=== PATIENT | male | born 1970 | race Caucasian/White ===

== ENCOUNTER 2017-03-30 02:53 | Inpatient (IN) | payer OTHER ==
[2017-03-30 04:38] LABS: Anion Gap 22 mmol/L; BUN/Creatinine Ratio 10; Blood Urea Nitrogen 10 mg/dL (9-20); Calcium 9.7 mg/dL (8.4-10.2); Carbon Dioxide 24 mmol/L (22-30); Chloride 94.2 mmol/L (98-107); Glucose 112 mg/dL (75-100); Potassium 3.9 mmol/L (3.6-5.0); Sodium 136 mmol/L (137-145)
[2017-03-30 04:44] LABS: Basophils % (Auto) 0.4 % (0.0-1.8); Eosinophils % (Auto) 0.3 % (0.0-4.3); Hematocrit 47.9 % (35.5-45.6); Hemoglobin 15.6 gm/dl (11.8-15.2); Mean Corpuscular HGB Conc 33 % (32-34); Mean Corpuscular Hemoglobin 29 pg (28-32); Mean Corpuscular Volume 89 fl (84-94); Platelet Count 256 K/mm3 (140-440); Red Blood Count 5.41 M/mm3 (3.65-5.03); Red Cell Distribution Width 14.6 % (13.2-15.2); White Blood Count 10.7 K/mm3 (4.5-11.0)
[2017-03-30] MEDS ORDERED: ASPIRIN PO ONE (08:44)
[2017-03-30] MEDS ORDERED: NITRO-BID 2% TP ONE (08:44)
--- NOTE | 2017-03-30 08:50 | Emergency Department Report ---
HPI - General Chief Complaint: Arrhythmia/Palpitations Time Seen by Provider: 03/30/17 08:36 - HPI HPI: Room 18 The patient is a 46-year-old male presenting with a chief complaint of chest pain. Patient admits to using cocaine yesterday and states minutes afterwards he developed chest pain and tachycardia. Patient describes chest pain as sharp and burning in nature and states it has been constant. Patient currently gets the chest pain score of 9/10. Patient does admit to a cough for the past 2 weeks. Vision his shortness of breath, nausea/vomiting and diaphoresis with his chest pain Location: Chest Duration: Constant since yesterday Quality: Sharp/burning Severity: 9/10 Modifying factors: [see above] Context: [see above] Mode of transportation: [not driving] ED Past Medical Hx - Past Medical History Previous Medical History?: No - Surgical History Past Surgical History?: No - Family History Family history: no significant - Social History Smoking Status: Current Every Day Smoker (1 pack per day) Substance Use Type: Alcohol (1 pint of liquor daily. Last consumed yesterday), Cocaine, Marijuana, Prescribed ED Review of Systems ROS: Stated complaint: TACHYCARDIC Other details as noted in HPI Comment: All other systems reviewed and negative Constitutional: diaphoresis Eyes: denies: eye pain, eye discharge, vision change ENT: denies: ear pain, throat pain Respiratory: shortness of breath Cardiovascular: chest pain, palpitations Endocrine: no symptoms reported Gastrointestinal: nausea, vomiting Genitourinary: denies: urgency, dysuria Musculoskeletal: denies: back pain, joint swelling, arthralgia Skin: denies: rash, lesions Neurological: denies: headache, weakness, paresthesias Psychiatric: denies: anxiety, depression Hematological/Lymphatic: denies: easy bleeding, easy bruising Physical Exam - Physical Exam Vital Signs: Vital Signs 03/30/17 03/30/17 03:06 06:55 Temperature 99 F 98.0 F Pulse Rate 106 H 88 Respiratory 18 Rate Blood Pressure 134/84 126/70 O2 Sat by Pulse 20 L 97 Oximetry Physical Exam: GENERAL: The patient is well-developed well-nourished male sleeping on stretcher not appearing to be in acute distress. Awakens to tactile stimuli HEENT: Normocephalic. Atraumatic. NECK: Supple. Trachea midline CHEST/LUNGS: Clear to auscultation. There is no respiratory distress noted. HEART/CARDIOVASCULAR: Regular. There is no tachycardia. There is no gallop rub or murmur. ABDOMEN: Abdomen is soft, nontender. Patient has normal bowel sounds. There is no abdominal distention. SKIN: There is no rash. There is no edema. There is no diaphoresis. NEURO: The patient is sleeping but awakens to tactile stimuli and becomes oriented. The patient is cooperative. The patient has normal speech MUSCULOSKELETAL: There is no evidence of acute injury. ED Course Vital Signs 03/30/17 03/30/17 03:06 06:55 Temperature 99 F 98.0 F Pulse Rate 106 H 88 Respiratory 18 Rate Blood Pressure 134/84 126/70 O2 Sat by Pulse 20 L 97 Oximetry ED Medical Decision Making - Lab Data Result diagrams: 03/30/17 04:05 03/30/17 04:05 Laboratory Tests 03/30/17 03/30/17 03/30/17 04:05 04:05 07:30 WBC 10.7 RBC 5.41 H Hgb 15.6 H Hct 47.9 H MCV 89 MCH 29 MCHC 33 RDW 14.6 Plt Count 256 Lymph % (Auto) 31.0 [place] % (Auto) 11.6 H Eos % (Auto) 0.3 Baso % (Auto) 0.4 Lymph # 3.3 [place] # 1.2 H Eos # 0.0 Baso # 0.0 Seg Neutrophils % 56.7 Seg Neutrophils # 6.0 Sodium 136 L Potassium 3.9 Chloride 94.2 L Carbon Dioxide 24 Anion Gap 22 BUN 10 Creatinine 1.0 Estimated GFR > 60 BUN/Creatinine Ratio 10 Glucose 112 H Calcium 9.7 Troponin T < 0.010 < 0.010 - EKG Data -: EKG Interpreted by Me EKG shows normal: sinus rhythm Rate: normal - EKG Data When compared to previous EKG there are: previous EKG unavailable Interpretation: nonspecific ST-T wave feliz (flattened T-wave in lead aVL) - Radiology Data Radiology results: image reviewed (chest x-ray) interpreted by me: Chest x-ray-no focal infiltrates, no pneumothorax - Differential Diagnosis ACS, coronary spasm, cocaine induced chest pain Critical care attestation.: If time is entered above; I have spent that time in minutes in the direct care of this critically ill patient, excluding procedure time. ED Disposition Clinical Impression: Chest pain, Cocaine abuse Disposition: -09 OP ADMIT IP TO THIS HOSP Is pt being admited?: Yes Does the pt Need Aspirin: Yes Condition: Fair Instructions: Chest Pain (ED) Referrals: PRIMARY CARE, [Primary Care Provider] - 3-5 Days Time of Disposition: 09:06 (hospitalist paged)
--- NOTE | 2017-03-30 09:04 | XRay Report ---
AP CHEST: HISTORY: chest pain AP view of the chest demonstrates a normal mediastinal and cardiac contour with clear lungs and normal bony and soft tissue structures. IMPRESSION: Unremarkable AP chest.
[2017-03-30] MEDS ORDERED: DULCOLAX PR PRN (10:35)
[2017-03-30] MEDS ORDERED: MORPHINE IV PRN (10:35)
[2017-03-30] MEDS ORDERED: TYLENOL PO PRN (10:35)
--- NOTE | 2017-03-30 10:44 | History and Physical Report ---
<ANNITA SHARP - Last Filed: 03/30/17 16:02> History of Present Illness Date of examination: 03/30/17 Date of admission: 03/30/2017 Chief complaint: Chest pain History of present illness: Patient is a 46 years old with no past medical history, who presented to the Emergency Department complaining of Midsternal chest pain. He states that the pain began yesterday around 10:00PM, after her ingested cocaine since then he is having constant midsternal chest pain. Patient described the pain as, sharp, pressure and squeezing in his chest; that radiates to the back. The sharp pain lasted around 1 minute. There is no aggravating or reliving factors. The painful episodes did not increase in intensity or severity during this time. Patient rated his pain level 8/10. He denies nausea , vomiting during these episodes of pain. He experienced shortness of breath, nausea, and diaphoresis during these episodes of pain. He denies vomiting. He has never had chest pain in the past. He continued to have several episodes of the pain throughout the morning, he decided to come to the emergency department. Past History Past Medical History: No medical history Past Surgical History: No surgical history Social history: smoking Family history: hypertension Medications and Allergies Allergies Allergy/AdvReac Type Severity Reaction Status Date / Time No Known Allergies Allergy Unverified 03/30/17 03:10 Home Medications Medication Instructions Recorded Confirmed Last Taken Type No Known Home Medications [No 03/30/17 03/30/17 Unknown History Reported Home Medications] Active Meds: Active Medications Acetaminophen (Tylenol) 650 mg PO Q4H PRN PRN Reason: Pain MILD(1-3)/Fever >100.5/HOOK Aspirin (Aspirin) 325 mg PO DAILY [facility] Bisacodyl (Dulcolax) 10 mg [place] QDAY PRN PRN Reason: Constipation unrelieved by MOM Enoxaparin Sodium (Lovenox) 40 mg SUB-Q QDAY [facility] Morphine Sulfate (Morphine) 2 mg IV Q4H PRN PRN Reason: Pain, Moderate (4-6) Nitroglycerin (Nitrostat) 0.4 mg SL .Q5MIN PRN PRN Reason: Chest Pain Review of Systems Constitutional: no weight loss, no weight gain, no fever, no chills Ears, nose, mouth and throat: no ear discharge, no tinnitis, no decreased hearing, no nose pain Cardiovascular: chest pain, shortness of breath, no rapid/irregular heart beat, no edema, no lightheadedness Respiratory: shortness of breath, no cough, no cough with sputum, no excessive sputum Gastrointestinal: nausea, vomiting, no diarrhea, no constipation, no change in bowel habits Genitourinary Male: no discharge, no urinary frequency, no urinary hesitancy, no incontinence Musculoskeletal: no arm numbness/tingling, no low back pain, no shooting leg pain, no leg numbness/tingling Integumentary: no sores, no wounds, no jaundice Neurological: no parathesias, no numbness, no tingling, no seizures Psychiatric: no change in sleep habits, no sleep disturbances, no insomnia, no hypersomnia Endocrine: no heat intolerance, no polyphagia, no excessive thirst Hematologic/Lymphatic: no easy bruising, no easy bleeding Allergic/Immunologic: no urticaria, no allergic rhinitis Exam - Constitutional Vitals: Temp Pulse Resp BP Pulse Ox 98.0 F 88 18 126/70 97 03/30/17 06:55 03/30/17 06:55 03/30/17 06:55 03/30/17 06:55 03/30/17 06:55 General appearance: Present: no acute distress - EENT Eyes: Present: PERRL ENT: hearing intact - Neck Neck: Present: supple - Respiratory Respiratory effort: normal Respiratory: bilateral: CTA - Cardiovascular Rhythm: regular Heart Sounds: Present: S1 & S2 - Extremities Extremities: no ischemia - Abdominal General gastrointestinal: Present: soft, non-tender Male genitourinary: Present: deferred - Rectal Rectal Exam: deferred - Integumentary Integumentary: Present: clear, warm, dry - Musculoskeletal Musculoskeletal: strength equal bilaterally - Psychiatric Psychiatric: appropriate mood/affect - Neurologic Neurologic: CNII-XII intact - Allied Health Allied health notes reviewed: nursing Results - Labs CBC & Chem 7: 03/30/17 04:05 03/30/17 04:05 Labs: Laboratory Last Values WBC 10.7 K/mm3 (4.5-11.0) 03/30/17 04:05 RBC 5.41 M/mm3 (3.65-5.03) H 03/30/17 04:05 Hgb 15.6 gm/dl (11.8-15.2) H 03/30/17 04:05 Hct 47.9 % (35.5-45.6) H 03/30/17 04:05 MCV 89 fl (84-94) 03/30/17 04:05 MCH 29 pg (28-32) 03/30/17 04:05 MCHC 33 % (32-34) 03/30/17 04:05 RDW 14.6 % (13.2-15.2) 03/30/17 04:05 Plt Count 256 K/mm3 (140-440) 03/30/17 04:05 Lymph % (Auto) 31.0 % (13.4-35.0) 03/30/17 04:05 [place] % (Auto) 11.6 % (0.0-7.3) H 03/30/17 04:05 Eos % (Auto) 0.3 % (0.0-4.3) 03/30/17 04:05 Baso % (Auto) 0.4 % (0.0-1.8) 03/30/17 04:05 Lymph # 3.3 K/mm3 (1.2-5.4) 03/30/17 04:05 [place] # 1.2 K/mm3 (0.0-0.8) H 03/30/17 04:05 Eos # 0.0 K/mm3 (0.0-0.4) 03/30/17 04:05 Baso # 0.0 K/mm3 (0.0-0.1) 03/30/17 04:05 Seg Neutrophils % 56.7 % (40.0-70.0) 03/30/17 04:05 Seg Neutrophils # 6.0 K/mm3 (1.8-7.7) 03/30/17 04:05 Sodium 136 mmol/L (137-145) L 03/30/17 04:05 Potassium 3.9 mmol/L (3.6-5.0) 03/30/17 04:05 Chloride 94.2 mmol/L (98-107) L 03/30/17 04:05 Carbon Dioxide 24 mmol/L (22-30) 03/30/17 04:05 Anion Gap 22 mmol/L 03/30/17 04:05 BUN 10 mg/dL (9-20) 03/30/17 04:05 Creatinine 1.0 mg/dL (0.8-1.5) 03/30/17 04:05 Estimated GFR > 60 ml/min 03/30/17 04:05 BUN/Creatinine Ratio 10 % 03/30/17 04:05 Glucose 112 mg/dL (75-100) H 03/30/17 04:05 Calcium 9.7 mg/dL (8.4-10.2) 03/30/17 04:05 Troponin T < 0.010 ng/mL (0.00-0.029) 03/30/17 09:08 Assessment and Plan Assessment and plan: Chest Pain We will admit to telemetry floor. EKG normal sinus, no ST elevation or T-wave inversion. Negative cardiac enzyme X3 Start on aspirin Nitroglycerin when necessary Morphine ordered for pain Stress test ordered. Cardiology evaluation Dehydration Started on IV hydration DVT prophylaxis Lovenox Advance Directives: Yes VTE prophylaxis?: Chemical Plan of care discussed with patient/family: Yes <VANNA CHAVARRIA R - Last Filed: 04/02/17 13:24> History of Present Illness Date of admission: 03/30/17 10:35 Exam - Constitutional Vitals: Temp Pulse Resp BP Pulse Ox 98.6 F 66 20 106/63 100 03/30/17 20:20 03/30/17 20:20 03/30/17 20:20 03/30/17 20:20 03/30/17 20:20 Results - Labs CBC & Chem 7: 03/30/17 04:05 03/30/17 04:05 Labs: Laboratory Last Values WBC 10.7 K/mm3 (4.5-11.0) 03/30/17 04:05 RBC 5.41 M/mm3 (3.65-5.03) H 03/30/17 04:05 Hgb 15.6 gm/dl (11.8-15.2) H 03/30/17 04:05 Hct 47.9 % (35.5-45.6) H 03/30/17 04:05 MCV 89 fl (84-94) 03/30/17 04:05 MCH 29 pg (28-32) 03/30/17 04:05 MCHC 33 % (32-34) 03/30/17 04:05 RDW 14.6 % (13.2-15.2) 03/30/17 04:05 Plt Count 256 K/mm3 (140-440) 03/30/17 04:05 Lymph % (Auto) 31.0 % (13.4-35.0) 03/30/17 04:05 [place] % (Auto) 11.6 % (0.0-7.3) H 03/30/17 04:05 Eos % (Auto) 0.3 % (0.0-4.3) 03/30/17 04:05 Baso % (Auto) 0.4 % (0.0-1.8) 03/30/17 04:05 Lymph # 3.3 K/mm3 (1.2-5.4) 03/30/17 04:05 [place] # 1.2 K/mm3 (0.0-0.8) H 03/30/17 04:05 Eos # 0.0 K/mm3 (0.0-0.4) 03/30/17 04:05 Baso # 0.0 K/mm3 (0.0-0.1) 03/30/17 04:05 Seg Neutrophils % 56.7 % (40.0-70.0) 03/30/17 04:05 Seg Neutrophils # 6.0 K/mm3 (1.8-7.7) 03/30/17 04:05 Sodium 136 mmol/L (137-145) L 03/30/17 04:05 Potassium 3.9 mmol/L (3.6-5.0) 03/30/17 04:05 Chloride 94.2 mmol/L (98-107) L 03/30/17 04:05 Carbon Dioxide 24 mmol/L (22-30) 03/30/17 04:05 Anion Gap 22 mmol/L 03/30/17 04:05 BUN 10 mg/dL (9-20) 03/30/17 04:05 Creatinine 1.0 mg/dL (0.8-1.5) 03/30/17 04:05 Estimated GFR > 60 ml/min 03/30/17 04:05 BUN/Creatinine Ratio 10 % 03/30/17 04:05 Glucose 112 mg/dL (75-100) H 03/30/17 04:05 Calcium 9.7 mg/dL (8.4-10.2) 03/30/17 04:05 Troponin T < 0.010 ng/mL (0.00-0.029) 03/30/17 09:08 Urine Opiates Screen Presumptive negative 03/30/17 11:45 Urine Methadone Screen Presumptive negative 03/30/17 11:45 Ur Barbiturates Screen Presumptive negative 03/30/17 11:45 Ur Phencyclidine Scrn Presumptive negative 03/30/17 11:45 Ur Amphetamines Screen Presumptive negative 03/30/17 11:45 U Benzodiazepines Scrn Presumptive negative 03/30/17 11:45 Urine Cocaine Screen Presumptive positive 03/30/17 11:45 U Marijuana (THC) Screen Presumptive negative 03/30/17 11:45 Drugs of Abuse Note Disclamer 03/30/17 11:45 Assessment and Plan Assessment and plan: I saw and evaluated the patient. I agree with the findings and the plan of care as documented in the Nurse Practitioner's~note, with the following corrections and additions.
[2017-03-30 11:47] LABS: Urine Drugs of Abuse Note Disclamer
--- NOTE | 2017-03-30 14:56 | Consultation ---
History of Present Illness Consult date: 03/30/17 Requesting physician: ANNITA SHARP Consult reason: chest pain History of present illness: The patient is a 46-year-old male with a past medical history significant for tobacco use (smoked 1ppd x 30 years), ETOH use (drinks 6 beers and 1/2 pint vodka daily) and cocaine use. He is previously unknown to our practice. He presented with c/o chest pain for the past 2 weeks. He describes his chest pain as a right sided intermittent nonexertional numbness and tingling which radiates down his right arm. He also c/o SOB both at rest and on exertion. He also c/o night sweats. He had a bout of lightheadedness this AM which is what prompted him to seek medical attention. He admits to heavy cocaine use over the past 2 days. His chest pain is sometimes aggravated by cocaine use. He denies any palpitations, n/v, or syncope. Past History Social history: smoking, alcohol abuse (daily), other (cocaine use) Family history: diabetes, stroke Medications and Allergies Allergies Allergy/AdvReac Type Severity Reaction Status Date / Time No Known Allergies Allergy Unverified 03/30/17 03:10 Home Medications Medication Instructions Recorded Confirmed Last Taken Type No Known Home Medications [No 03/30/17 03/30/17 Unknown History Reported Home Medications] Active Meds: Active Medications Acetaminophen (Tylenol) 650 mg PO Q4H PRN PRN Reason: Pain MILD(1-3)/Fever >100.5/HOOK Aspirin (Aspirin) 325 mg PO DAILY [facility] Bisacodyl (Dulcolax) 10 mg [place] QDAY PRN PRN Reason: Constipation unrelieved by MOM Enoxaparin Sodium (Lovenox) 40 mg SUB-Q QDAY [facility] Sulfate (Morphine) 2 mg IV Q4H PRN PRN Reason: Pain, Moderate (4-6) Nitroglycerin (Nitrostat) 0.4 mg SL .Q5MIN PRN PRN Reason: Chest Pain Review of Systems Constitutional: sweats, night sweats, no weight loss, no weight gain, no fever, no chills Ears, nose, mouth and throat: no ear pain, no nose pain, no sinus pressure, no sinus pain Cardiovascular: chest pain, lightheadedness, shortness of breath, dyspnea on exertion, no orthopnea, no palpitations, no rapid/irregular heart beat, no edema , no syncope, no paroxysmal nocturnal dyspnea, no high blood pressure, no leg edema Respiratory: shortness of breath, dyspnea on exertion, no cough, no congestion, no wheezing, no pain on inspiration Gastrointestinal: no abdominal pain, no nausea, no vomiting, no diarrhea, no constipation, no change in bowel habits Genitourinary Male: no dysuria, no hematuria, no flank pain, no urinary frequency, no urinary hesitancy Musculoskeletal: arm numbness/tingling (RUE), no neck stiffness, no neck pain, no low back pain, no shooting leg pain, no leg numbness/tingling, no redness of joints Integumentary: no rash, no pruritis, no redness, no sores, no wounds Neurological: no head injury, no paralysis, no weakness, no parathesias, no numbness, no tingling, no seizures, no syncope Psychiatric: no anxiety Endocrine: no cold intolerance, no heat intolerance Hematologic/Lymphatic: no easy bruising, no easy bleeding, no lymphadenopathy Allergic/Immunologic: no urticaria, no wheezing, no persistent infections Physical Examination Vital Signs Temp Pulse BP Pulse Ox 99 F 106 H 134/84 20 L 03/30/17 03:06 03/30/17 03:06 03/30/17 03:06 03/30/17 03:06 General appearance: no acute distress HEENT: Positive: PERRL, Normocephaly, Mucus Membranes Moist Neck: Positive: neck supple, trachea midline Cardiac: Positive: Reg Rate and Rhythm, S1/S2 Lungs: Positive: clear to auscultation Neuro: Positive: Grossly Intact, Cranial Nerve 2-12 Intact Abdomen: Positive: Unremarkable, Soft, Active Bowel Sounds. Negative: Tender Skin: Positive: Clear. Negative: Rash, Wound Musculoskeletal: No Fluid Collection, No Pain, Normal Range of Motion Extremities: Absent: edema Results 03/30/17 04:05 03/30/17 04:05 - Imaging and Cardiology Echo: pending EKG: report reviewed, image reviewed EKG interpretations - Telemetry EKG Rhythm: Sinus Rhythm - EKG Sinus rhythms and dysrhythmias: sinus rhythm Repolarization changes or abnormalities: early repolarization (normal variant) Assessment and Plan Assessment: Chest pain, atypical - Marisa negative for AMI; ECG with NAF SOB at rest and AVILEZ Cocaine use / ETOH abuse / tobacco use - cessation encouraged Plan: Cont ASA 325mg daily. Obtain fasting lipid panel in AM. Plan for lexiscan MPI stress test in AM. NPO after MN. Avoid beta blockers given cocaine use. Assessment and plan reviewed with pt at bedside. The patient has been seen in conjunction with Dr. Suarez who agrees with the assessment and plan of care.
[2017-03-30] MEDS: NITROSTAT SL PRN ×3 (17:01→17:13)
[2017-03-30 20:26] VITALS: BP 106/63
[2017-03-31] MEDS ORDERED: ASPIRIN PO SCH (10:00)
[2017-03-31] MEDS ORDERED: LOVENOX SUB-Q SCH (10:00)
== END 2017-03-31 01:00 | disposition left against medical advice (07) | DRG 313 ==
LOC: ED 02:53 → 4A 10:35
PROVIDERS: ADMIT Hospitalist; ATTEND Hospitalist
DX: R07.89 Other chest pain (principal); F14.10 Cocaine abuse, uncomplicated; F17.200 Nicotine dependence, unspecified, uncomplicated; F12.90 Cannabis use, unspecified, uncomplicated; E86.0 Dehydration; Z82.49 Family history of ischemic heart disease and other diseases of the circulatory system; Z72.89 Other problems related to lifestyle; Z83.3 Family history of diabetes mellitus; Z82.3 Family history of stroke
CPT/HCPCS: 36415; 71010; 80048; 80307; 84484; 85025; 93005; 93010